=== PATIENT | male | born 1960 | race Caucasian/White ===

== ENCOUNTER → 2017-12-29 | Outpatient (CLI) | payer OTHER ==
[~2017-12-29] MED LIST: GADOBUTROL 10 ML VIAL IVP ONE
== END ==
LOC: FIMAGING 09:17
DX: R97.20 Elevated prostate specific antigen [PSA] (principal); R89.6 Abnormal cytological findings in specimens from other organs, systems and tissues; R93.8 Abnormal findings on diagnostic imaging of other specified body structures
CPT/HCPCS: A9585